=== PATIENT | female | born 1990 | race Caucasian/White ===

== ENCOUNTER 2021-02-07 12:29 | Outpatient (CLI) | payer OTHER, SELFPAY ==
[2021-02-07 14:47] LABS: Adenovirus Not Detected (NOT DETECT); Chlamydia Pneumoniae Not Detected (NOT DETECT); Coronavirus 229E,HKU1,NL63,OC4 Not Detected (NOT DETECT); Human Metapneumovirus Not Detected (NOT DETECT); Human Rhinovirus/Enterovirus Not Detected (NOT DETECT); Influenza A Not Detected (NOT DETECT); Influenza A H1 Not Detected (NOT DETECT); Influenza A H1-2009 Not Detected (NOT DETECT); Influenza A H3 Not Detected (NOT DETECT); Influenza B Not Detected (NOT DETECT); Mycoplasma Pneumoniae Not Detected (NOT DETECT); Parainfluenza Virus Type 1 Not Detected (NOT DETECT); Parainfluenza Virus Type 2 Not Detected (NOT DETECT); Parainfluenza Virus Type 3 Not Detected (NOT DETECT); Parainfluenza Virus Type 4 Not Detected (NOT DETECT); Respiratory Syncytial Virus A Not Detected (NOT DETECT); Respiratory Syncytial Virus B Not Detected (NOT DETECT); SARS-COV-2 Not Detected (NOT DETECT)
[2021-02-07 14:51] LABS: Influenza A Not Detected (NOT DETECT); Influenza A H1 Not Detected (NOT DETECT); Influenza A H1-2009 Not Detected (NOT DETECT); Influenza A H3 Not Detected (NOT DETECT); Influenza B Not Detected (NOT DETECT); Results from Genmark
== END 2021-02-07 12:30 | disposition home or self-care (01) ==
LOC: LAB 12:33
PROVIDERS: PCP Family Medicine; Visit Provider Nurse Practitioner Family
DX: Z20.822 Contact with and (suspected) exposure to COVID-19 (principal)
CPT/HCPCS: 87631; 87635

== ENCOUNTER → 2023-03-22 15:10 | Outpatient (BNVA) | payer OTHER, SELFPAY | PROVIDERS: PCP Family Medicine; Visit Provider Nurse Practitioner Women's Health | DX: Z12.4 Encounter for screening for malignant neoplasm of cervix (principal) | CPT/HCPCS: 87624 ==

== ENCOUNTER 2023-05-30 10:23 | Outpatient (CLI) | payer OTHER, SELFPAY | END 2023-05-30 10:24 | disposition home or self-care (01) | LOC: LAB 10:24 | PROVIDERS: PCP Family Medicine; Visit Provider Family Medicine | DX: Z80.3 Family history of malignant neoplasm of breast (principal); Z84.81 Family history of carrier of genetic disease | CPT/HCPCS: 36415; 81162 ==